=== PATIENT | male | born 1985 | race African-American/Black ===

== ENCOUNTER 2017-04-22 00:59 | Emergency (ER) | payer OTHER ==
[~2017-04-22] VITALS: Ht 185.4 cm; Wt 63.5 kg
[2017-04-22] MEDS ORDERED: IBUPROFEN600 MG ORAL (01:55)
[2017-04-22] MEDS ORDERED: ROBAXIN-750750 MG PO (01:55)
--- NOTE | 2017-04-22 02:20 | Emergency Room Report ---
History of Present Illness General Chief Complaint: Lower Extremity Injury Source: Patient Present Illness HPI 31YOM with left knee sprain that occurred while twisting it accidentally. No fall No direct trauma to left knee No previous injury Able to ambulate Allergies: Coded Allergies: No Known Allergies (Unverified , 04/22/17) Patient History Past Medical History: none Past Surgical History: none Pertinent Family History: none Social History: Denies: alcohol use, drug use, smoking Immunizations: UTD Reviewed Nursing Documentation: PMH: Agreed, PSxH: Agreed Nursing Documentation-PMH Past Medical History: No Stated History Review of Systems All Other Systems: negative except mentioned in HPI Physical Exam Vital Signs Date Time Temp Pulse Resp B/P Pulse Ox O2 Delivery O2 Flow Rate FiO2 04/22/17 01:19 98.8 56 20 154/90 98 Room Air Sp02 EP Interpretation: reviewed, normal General Appearance: normal inspection, well appearing, no apparent distress, alert, GCS 15, non-toxic, other - Rolling around on stretcher, flexing/ extending both knees, no obvious distresss Head: normocephalic, atraumatic Eyes: bilateral eye EOMI, bilateral eye PERRL ENT: normal ENT inspection, hearing grossly normal, normal voice Neck: normal inspection, full range of motion, supple, no bony tend Respiratory: normal inspection, lungs clear, normal breath sounds, no respiratory distress, no retraction, no wheezing Cardiovascular #1: regular rate, rhythm, no edema Gastrointestinal: normal inspection, normal bowel sounds, non tender, soft, no guarding, no hernia Genitourinary: no CVA tenderness Musculoskeletal: other - Left knee: No joint instability. Non-tender grossly to palpation. No effusion. 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, motor strength/tone normal, speech normal Psychiatric: normal inspection, judgement/insight normal, mood/affect normal Skin: normal inspection, normal color, no rash Medical Decision Making Diagnostic Impression: Primary Impression: Knee sprain Qualified Codes: S83.92XA - Sprain of unspecified site of left knee, initial encounter ER Course No direct trauma so fx unlikely Possible sprain of ligament/tendon Knee brace and crutches provided RICE, NSAIDS Ortho referral DC home Last Vital Signs Date Time Temp Pulse Resp B/P Pulse Ox O2 Delivery O2 Flow Rate FiO2 04/22/17 01:19 98.8 56 20 154/90 98 Room Air Status: improved Disposition: HOME, SELF-CARE Condition: Improved Scripts Ibuprofen* (MOTRIN*) 600 Mg Tablet 600 MG ORAL THREE TIMES A DAY for 7 Days, #30 TAB 0 Refills Prov: JAVON PARISI M.D. 04/22/17 Methocarbamol* (ROBAXIN-750*) 750 Mg Tablet 750 MG PO TID for 7 Days, #30 TAB 0 Refills Prov: JAVON PARSII M.D. 04/22/17 Referrals: NOT CHOSEN IPA/,REFERRING (PCP) Patient Instructions: Knee Immobilizer, Knee Sprain, [id number] Additional Instructions: - Take ibuprofen with robaxin up to 3x a day for knee sprain - Keep knee brace on when walking - Follow up with primary care doctor for orthopedics referral in 1 week JAVON PARISI M.D. Apr 22, 2017 02:20
[2017-04-22 02:51] VITALS: BP 154/90
== END 2017-04-22 02:51 | disposition home or self-care (01) ==
LOC: EMR 01:45
DX: S83.92XA Sprain of unspecified site of left knee, initial encounter (principal); X50.1XXA Overexertion from prolonged static or awkward postures, initial encounter; Y92.9 Unspecified place or not applicable
CPT/HCPCS: 29530; 99284